=== PATIENT | male | born 1985 | race Caucasian/White ===

== ENCOUNTER → 2022-11-23 07:01 | Outpatient (CLI) | payer OTHER, SELFPAY ==
--- NOTE | ~2022-11-23 | MR_ITS ---
EXAMINATION: MR knee LT wo con DATE: 11/23/2022 07:41 INDICATION: Left knee pain TECHNIQUE: Magnetic resonance imaging (MRI) of the left knee was performed without intravenous contra st. Sequences included sagittal and coronal PD-weighted FSE and axial, sagittal and coronal fluid se nsitive FSE STIR. COMPARISON: None. FINDINGS: Medial compartment: Longitudinal horizontal tear extending to the inferior articular surface at the posterior body and po sterior horn of the medial meniscus with multiloculated meniscal cyst along the periphery of the meni scal tear and extending craniocaudally along and within the posterior oblique component of the medial collateral ligament and along the superficial margin of the more anterior portion of the medial birgit ateral ligament. There is deep chondral fissuring without degenerative subchondral changes along the anterior to central weightbearing medial femoral condyle. There appears be a small chondral flap tear with linear increased signal along a likely delaminating tear near the bone chondral interface at th e posterior weightbearing medial femoral condyle. Shallow chondral fissuring along the posterior aspe ct of the medial tibial plateau and partial-thickness cartilage loss with relatively smooth chondral surface along the medial aspect of the medial tibial plateau. Small to moderate size marginal osteoph ytes are present. Lateral compartment: Discoid lateral meniscus without discrete tear. Antral subchondral osteophytes at the sites of chondr al ulceration along the anterior and posterior margins of the weightbearing lateral femoral condyle. Additional deep chondral ulceration along the posterior rim of the lateral tibial plateau. Small to m oderate size marginal osteophytes are present. Patellofemoral compartment: Shallow chondral fissuring at the central aspect of the lateral patellar facet. Deep chondral ulcerat ion and fissuring with underlying cortical irregularity and edema-like signal change at the cephalad aspect of the medial trochlea and trochlear groove and immediately adjacent superomedial aspect of th e lateral trochlea. This appears to include a small mildly elevated loose osteochondral fragment whic h is best appreciated on image 15 of sagittal series 6 & 7. Small deep delaminating chondral tear mary ng the lateral rim of the lateral trochlea. Small patellar and moderate-sized trochlear marginal oste ophytes are present. Ligaments and tendons: Intact appearing anterior cruciate ligament reconstruction. Posterior cruciate ligament appears ranjith l. There appear to be a couple growth tracks converging from the medial epicondylar region towards th e femoral footplate of the posterior cruciate ligament which suggests possible prior posterior crucia te ligament repair. Intact appearing reconstruction of the fibular collateral ligament complex tear w ith magnetic field artifact associated with a large likely anchoring screw at the femoral attachment and with smaller anchoring screws along the head of the fibula and posterolateral margin of the later al tibial plateau. There is some heterotopic ossification likely sequela of the prior trauma or surge ry or anteriorly along the fibular insertion of the insertion of the distal biceps femoris tendon and along the posterior aspect of the distal iliotibial band. Sagittal oriented scarring along the centr al patella likely reflecting a patellar tendon autograft harvest site for the anterior cruciate ligam ent reconstruction with mild tendinopathy and small amount of heterotopic ossification at the proxima l and distal aspects of the harvest site. Quadriceps tendon is normal. The medial hamstring tendons a re normal. Fluid: Small joint effusion with mild synovitis at the suprapatellar pouch. 10 x 10 x 5 mm loose osteochondr al body at the inferior medial gutter of the suprapatellar pouch. Osseous/other: Jonny
== END ==
PROVIDERS: Visit Provider Nurse Practitioner Family
DX: M25.562 Pain in left knee (principal); M25.569 Pain in unspecified knee; Z98.890 Other specified postprocedural states; S83.242A Other tear of medial meniscus, current injury, left knee, initial encounter; M23.022 Cystic meniscus, posterior horn of medial meniscus, left knee; M17.12 Unilateral primary osteoarthritis, left knee; M94.262 Chondromalacia, left knee
CPT/HCPCS: 73721

== ENCOUNTER 2023-01-10 08:05 | Outpatient (CLI) | payer OTHER, SELFPAY ==
--- NOTE | 2023-01-10 08:14 | ECG_ITS ---
Measurements Intervals [place] Rate: 67 P: 16 TN: 161 QRS: -14 QRSD: 117 T: 40 QT: 392 QTc: 415 Interpretive Statements SINUS RHYTHM CANNOT RUlE OUT LATERAL MYOCARDIAL INFARCTION, OF INDETERMINATE AGE BORDERLINE ECG NO PREVIOUS ECG AVAILABLE FOR COMPARISON Electronically Signed On 01-10-2023 14:14:12 GRINDER SETUP OPERATOR by Claudy Payne M.D.
== END 2023-01-10 08:06 | disposition home or self-care (01) ==
PROVIDERS: PCP Internal Medicine; Visit Provider Orthopaedic Surgery
DX: Z01.810 Encounter for preprocedural cardiovascular examination (principal); I10 Essential (primary) hypertension
CPT/HCPCS: 93005

== ENCOUNTER 2023-01-12 00:18 | Day surgery (SDC) | payer OTHER, SELFPAY ==
[2023-01-06 08:46] VITALS: BMI 38.5
--- NOTE | 2023-01-06 08:51 | PC.NURSE ---
Report to the Outpatient Waiting Room, entrance under the green pavilion located off [facility], at time 1:00 on date 01/12/23. Planned Procedure Time: 3:00. Time changes happen often and if your time is changed the preop area will call you the afternoon before. - You and your visitor will be asked to self-screen and do not enter if you have any COVID symptoms. - Only one visitor is requested with a max of two and NO children visitors are allowed at this time. - The patient visitor may be requested to leave or wait in car when not with patient due to distancing restrictions. - A mask is optional within the hospital at this time. Patients may have clear liquids (water, carbonated beverages, clear teas, apple juice) until 3 hours prior to surgery (12:00) with a maximum of 20 ounces. - No food from midnight until time of surgery Take the following medications with a SIP of water the morning of surgery: NONE DO NOT STOP ANY OF YOUR OTHER PRESCRIPTION MEDICATIONS PRIOR TO SURGERY EXCEPT THE FOLLOWING Medications to discontinue per physician: N/A Date to take last dose: N/A NO CHEWING TOBACCO DAY OF SURGERY. Please no make-up, nail armenian, hairspray, perfume, deodorant, or body powder the day of surgery. No jewelry (including any body piercings) or valuables the day of surgery, leave them at home. Please take a shower or bath the night before, or the morning of, surgery with an antibacterial soap. Wear comfortable, loose fitting clothing. - Jewelry must be removed prior to entering the operating room. Rings and piercings that are not removed may be cut off. - The hospital will not accept responsibility for valuables. - Please leave all valuables, including medications, at home the day of surgery. If you are going home after surgery, a licensed ambulance driver paramedic must drive you home. - NO public transportation without another adult if you receive anesthesia. - We recommend that an adult stay with you for 24 hours following discharge. - We also recommend that you do not drive, make important decision, drink alcoholic beverages, or take any drugs that were not prescribed by your health care provider for at least 24 hours after your discharge time. Follow any additional instructions given to you from your surgeon. If you or anyone in your household have experienced Covid symptoms in the past week, please notify your surgeon or the nurse liaison at the phone number below for possible testing. Telephone instructions given to PT Juan Carlos MEDEROS and asked if any additional questions and then verbalized understanding. Patient advised to call surgeon office or pre surgery nurse liaison [phone] if any additional questions.
[2023-01-12] VITALS (10 sets, daily range): BP systolic 140–170; BP diastolic 78–112; PULSE 55–86; RESP 12–18; TEMP 36.1–36.8; O2SAT 93–100
--- NOTE | 2023-01-12 07:21 | WPDHPUPDATE1 ---
History and Physical Update Update Date/Time: 01/12/23 07:21 History and Physical has been reviewed, including an updated exam of the patient. There are NO changes in the patient's condition. Risks, benefits, and alternatives have been discussed and questions answered. Patient agrees to proceed with procedure.
[2023-01-12] MEDS: CELECOXIB 200 MG CAPSULE PO (12:01)
[2023-01-12] MEDS: ACETAMINOPHEN 500 MG TABLET 1000 MG PO (12:01)
[2023-01-12] MEDS: LACTATED RINGERS 1,000 ML 30 ML IV CONT ×2 (12:06→15:20)
--- NOTE | 2023-01-12 12:53 | P.PNAN_ITS ---
Anes - Initial Pre Proc Eval Procedure: Operation Date: 01/12/23 13:30 Proposed Procedures p Left Knee Arthroscopy - Jimbo Shahid MD Date/Time: 01/12/23 12:53 Surgeon: Jimbo Shahid MD Pre Op Diagnosis: lft medical menisus tear, discoid lateral meniscus Patient Data Age: 37 Gender: M Height: 42.06 m Weight: 136.1 kg Last Vital Signs Temp 36.8 C 01/12/23 12:09 Pulse 61 01/12/23 12:09 Resp 16 01/12/23 12:09 BP 155/112 H 01/12/23 12:09 Pulse Ox 94 01/12/23 12:09 O2 Del Method Room Air 01/12/23 12:09 Allergies Allergy/AdvReac Type Severity Reaction Status Date / Time morphine Allergy Unknown Itching Verified 01/12/23 11:48 Home Medications Medication Instructions Recorded Confirmed Type lisinopril 30 mg tablet 30 mg PO DAILY 01/06/23 01/12/23 History omeprazole 40 mg capsule,delayed 40 mg PO DAILY 01/06/23 01/12/23 History release Patient hx anesthesia problems: none Family hx anesthesia problems: none Results Review: All pre-operative results and documents have been reviewed as part of the pre- operative evaluation. PMFSH Surgical History Surgical History H/O elbow surgery unsure what kind of surgery, please verify with pt H/O knee surgery Bilateral knee surgery -- unsure what kind of surgery please verify with pt Family History Family History Other Hypertension Social History Social History Smoking status: Current every day smoker Tobacco type: smokeless tobacco Smokeless tobacco user: chewing tobacco and snuff Alcohol intake: current Drinks per week: 10 Substance use: never Substance use type: does not use Living arrangements: with family Spiritual care concerns: No Anes - Eval Final PreProcedure Day of Procedure 01/12/23 12:53 Patient weight: obese Heart: regular rate and rhythm Lungs: decreased breath sounds Airway: Mallampati scale class III Neurological: alert and oriented Last oral intake: >/= 8 hours ASA classification: III Emergent: no Anesthetic plan: proceed Anesthesia type and monitoring: general LMA and standard monitoring Results Review: All pre-operative results and documents have been reviewed as part of the pre- operative evaluation. Informed Consent: The patient's anesthetic plan and its attendant risks and benefits were discussed with the patient/family/POA. Questions were solicited and answers provided to the satisfaction of the patient/family/POA.
--- NOTE | 2023-01-12 12:54 | SUR.PREOP ---
1253- Checked pt BP again, 154/102, HR 55. Reviewed with Dr. Lorenzo and he stated will keep eye on BP during procedure.
[2023-01-12] MEDS: ceFAZolin 3 GM/D5W 100 ML 100 ML IVPB (13:38)
[2023-01-12] MEDS: BUPivacaine HCL 0.5% PF 30 ML VIAL INFILTRATE (14:00)
[2023-01-12] MEDS: fentaNYL CITRATE INJ (*CRX) 100 MCG/2 ML VIAL 25 MCG IV PUSH ×4 (15:46→15:59)
--- NOTE | 2023-01-12 16:07 | W.PM.PROC2 ---
Procedure Note - Detailed Date of Procedure 01/12/23 Pre-op Diagnosis left medial meniscus tear, multiple loose bodies, severe chondromalacia Post-op Diagnosis Same Procedure Performed LEFT KNEE SCOPE WITH REMOVAL OF MULTIPLE LOOSE BODIES AND PARTIAL MEDIAL MENISCECTOMY AND MAJOR SYNOVECTOMY Surgeon Jimbo Shahid MD Anesthesia General Description of Procedure PATIENT WAS TAKEN TO THE OR. LEFT LEG WAS PREPPED AND DRAPED STERILE. TROCARS WERE PLACED IN THE USUAL FASHION. CAMERA WAS INTRODUCED. THERE WAS SEVERE CHONDROMALACIA TO THE PATELLA FEMORAL JOINT. THERE WAS A LOT OF SYNOVITIS IN ALL COMPARTMENTS. THERE WERE AT LEAST 2 LARGE LOOSE BODIES IN THE SUPERIOR LATERAL COMPARTMENT. THE MEDIAL COMPARTMENT SHOWED CHONDROMALACIA TO THE MEDIAL FEMORAL CONDYLE. A SHAVER WAS USED TO PREFORM A CHONDROPLASTY. THERE WAS A COMPLEX MEDIAL MENISCUS TEAR. THE TEAR WAS RESECTED WITH A BITER AND A SHAVER DOWN TO A SMOOTH BASE. ABOUT 30% OF THE MENISCUS WAS REMOVED. THE ACL WAS INTACT BUT THERE WAS LAXITY WITH DIRECT VISUALIZATION WITH ANTERIOR DRAWER TEST. THE LATERAL MENISCUS WAS NOT TORN. THERE WAS NO SIGNIFICANT DISCOID LATERAL MENISCUS. THE LATERAL COMPARTMENT HAD MINIMAL CHONDROMALACIA. CHONDROPLASTY WAS PREFORMED. A SYNOVECTOMY WAS PREFORMED WELL. THE PATELLO FEMORAL JOINT UNDERWENT CHONDROPLASTY. THERE WAS GRADE 4 CHONDROMALACIA IN PART OF THE TROCHLEA AND GRADE 3 IN PART OF THE PATELLA. SYNOVECTOMY WAS PREFORMED IN THE SUPERIOR MEDIAL COMPARTMENT. MULTIPLE LOOSE BODIES WERE REMOVED AT THIS TIME. THE KNEE JOINT WAS IRRIGATED. THE INSTRUMENTS WERE REMOVED. THE WOUNDS WERE APPROXIMATED WITH 4.0 NYLON. STERILE DRESSING WAS APPLIED. PATIENT WAS EXTUBATED. Estimated Blood Loss 5 Complications No immediate complications Condition Stable Disposition PACU
[2023-01-12] MEDS: oxyCODONE HCL (*CRX) 5 MG TAB IR PO (16:20)
== END 2023-01-12 17:35 | disposition home or self-care (01) ==
PROVIDERS: PCP Internal Medicine; Visit Provider Orthopaedic Surgery
PROC: (CPT 29870; principal; 2023-01-12 13:30)
DX: M23.322 Other meniscus derangements, posterior horn of medial meniscus, left knee (principal); M22.42 Chondromalacia patellae, left knee; M23.42 Loose body in knee, left knee; M65.862 Other synovitis and tenosynovitis, left lower leg; F17.220 Nicotine dependence, chewing tobacco, uncomplicated; E66.9 Obesity, unspecified; Z68.39 Body mass index [BMI] 39.0-39.9, adult
CPT/HCPCS: 29881; 29876; 93005; A9270; J0690; J1040; J1100; J2250; J2405; J2704; J3010; J3301; J7120